=== PATIENT | female | born 1965 | race Caucasian/White ===

== ENCOUNTER 2023-03-17 07:40 | Day surgery (SDC) | payer OTHER ==
[~2023-03-17] VITALS: Ht 160 cm; Wt 88.0 kg
[2023-03-17] MEDS ORDERED: fentaNYL citrate 0.05 MG/ML VIAL ONE (09:05)
[2023-03-17] MEDS ORDERED: LIDOCAINE 2% 100 MG/5 ML UJET TP ONE (09:06)
[2023-03-17] MEDS ORDERED: fentaNYL citrate 0.05 MG/ML VIAL IVP ONE (10:10)
== END 2023-03-17 10:26 | disposition home or self-care (01) ==
LOC: MDS 07:40 → MMU 07:41 → MDS 10:26
PROVIDERS: ATTEND Internal Medicine Gastroenterology
DX: R14.0 Abdominal distension (gaseous) (principal); K57.30 Diverticulosis of large intestine without perforation or abscess without bleeding; Z86.010 Personal history of colon polyps
CPT/HCPCS: 45378; J3010